=== PATIENT | male | born 2000 | race Two or more races ===

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

== ENCOUNTER 2021-02-10 22:07 | Emergency (ER) | payer MEDICAID ==
[~2021-02-10] VITALS: Ht 162.6 cm; Wt 122.9 kg
[2021-02-10] MEDS ORDERED: ALBUTEROL SULF 2.5 MG/0.5ML(0.5%) NEB SOLN NEB ONE (22:15)
[2021-02-10] MEDS ORDERED: IPRATROPIUM BROM 0.5 MG/2.5ML INH SOL NEB ONE (22:15)
[2021-02-11 01:02] VITALS: BP 147/99
[2021-02-11] MEDS ORDERED: methylPREDNISolone SOD SUCC 125 MG/2 ML VL IM ONE (01:15)
== END 2021-02-11 02:05 | disposition home or self-care (01) ==
LOC: ER 22:07
DX: J45.909 Unspecified asthma, uncomplicated (principal); Z20.822 Contact with and (suspected) exposure to COVID-19
CPT/HCPCS: 36415; 87426; 94640; 96372; 99283; J2930; J7644